=== PATIENT | male | born 1955 | race Caucasian/White ===

== ENCOUNTER 2022-02-07 08:28 | Outpatient (CLI) | payer OTHER, SELFPAY ==
--- OUTSIDE RECORDS SUMMARY | 2022-02-07 08:30 | XMS_ITS | Encounter Summary ---
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) (Primary Dx); Endocrinology M, MBBS Essential hypertension; [address] Dyslipidemia; [place] [address] [address]VD Obesity, unspecified obesity severity, u nspecified obesity type [phone] [place] [address] Social History Tobacco Use Types Packs/Day Years Used Date Smoking Tobacco: Former Cigarettes Quit : 11/17/2006 Smokeless Tobacco: Never Sex Assigned at Date Recorded Not on file documented as of this encounter Last Filed Vital Signs Vital Sign Reading Time Taken Comments Blood Pressure 138/68 06/15/2019 10:15 AM CDT Pulse 72 06/15/2019 10:15 AM CDT Temperature - - Respiratory Rate - - Oxygen Saturation - - Inhaled Oxygen Concentration - - Weight 110 kg (242 lb 6.4 oz) 06/15/2019 10:15 AM CDT Height 171.5 cm (5' 7.5) 06/15/2019 10:15 AM CDT Body Mass Index 37.4 06/15/2019 10:15 AM CDT documented in this encounter Patient Instructions Patient Corey Crowe - 06/15/2019 10:00 AM CDT Thank you for enrolling in [facility]. Please follow the instructions below to securely access your online medical record. [facility] allows you to send messages to your doctor, view your test results, renewyour prescriptions, schedule appointments, and more. How Do I Sign Up? 1. In your Internet browser, go to [email or web address] 2. Click on the Enter activation code link under the New User? section. You will see the Activate your account! page. 3. Enter your activation code exactly as it appears below. You will not need to use this code after you???ve completed the sign-up process. If you do not sign up before the expiration date, you must request a new code. Activation Code: [email or web address] Expires: 07/15/2019 10:43 AM 4. Enter your last name and date of (mm/dd/yyyy) as indicated, then click Continue. You will be taken to the Let's set up your account page. 5. Create a username. This will be your [facility] login ID and cannot be changed, so think of one thatis secure and easy to remember. 6. Create a password. You can change your password at any time. 7. Enter your e-mail address. You will receive e-mail notification when new information is availablein [facility]. 8. Select your Security Questions and enter your answers. These can be used at a later time if you forget your password. 9. Check the box to accept the terms and conditions. Click Create your account. You can now view your medical record. Additional Information If you have questions, you can call [phone] to talk to our [facility] staff. Remember, [facility] is NOT to be used for urgent needs. For medical emergencies, dial 911. documented in this encounter Progress Notes Scott Guerra MBBS - 06/15/2019 10:00 AM CDT [facility] Department of Endocrinology, Diabetes and Metabolism Clinic Note Name: Diaz Jones Cc: The patient was referred by Dr Meadows for diabetes management. HPI: Diaz Jones is a 63 y.o. male #1 T2DM: Diagnosed at age 51, on insulin since age 62, this is complicated by microalbuminuria and neuropathy. He is currently using insulin lantus 30 units QHS and metformin 1 gm BID. He checks his FSBG 2 times daily, running in the 150-200 range, A1C today was 8%. He has peripheral neuropathy symptoms. Eye exam from 2019 was reported with no retinopathy. He takes levothyroxine 100 mcg daily, TSH from 11/2018 was 1.3. Creatinine from 11/2018 was 0.7, he has microalbuminuria, he takes lisinopril 10 mg daily, BP today was 138/68. ROS: A 10 point ROS was done, and is negative unless specified otherwise in the HPI. Medications: medication list was reviewed and updated on the EMR. PMHx: Past Medical History: Diagnosis Date ??? Diabetes mellitus type II, controlled (HRC) ??? Dyslipidemia (HRC) 06/15/2019 ??? Essential hypertension (HRC) 06/15/2019 FHx: Family History Problem Relation Age of Onset ??? Diabetes, Type II Father ??? Diabetes Brother SHx: Social History Tobacco Use ??? Smoking status: Former Smoker Last attempt to quit: 11/17/2006 Years since quittin.5 ??? Smokeless tobacco: Never Used Substance Use Topics ??? Alcohol use: Not on file ??? Drug use: Not on file Physical Examination: Vitals: BP 138/68 (BP Location: Left Arm, BP Cuff Size: Large) Pulse 72 Ht 5' 7.5 (1.715 m) Wt 242 lb 6.4 oz (110 kg) BMI 37.40 kg/m?? General: The patient is alert and oriented, no acute distress. Eyes: EOMI, pupils are equal. ENT: Mucous membranes are moist. Neck: Supple, no palpable lymph nodes. Thyroid: No exophthalmos, no lid lag or retraction. Thyroid gland is not palpable. Chest: Clear to auscultation bilaterally. Normal S1 and S2, no murmurs. Neurologic exam: Power is symmetrical 5/5 in upper and lower extremities. Reflexes are normal and symmetrical bilaterally. Upper extremities: Hands are dry, no clubbing or cyanosis. Labs: Reviewed and summarized in the HPI. Assessment and Plan: Diaz Jones is a 63 y.o. male: #1 T2DM: Uncontrolled, complicated by microalbuminuria and obesity, A1C 8%. Counseled the patient about the importance of DM control. Counseled him about diet and exercise. Continue metformin 1 gm BID. Continue Lantus 30 units QHS. Start Jardiance 10 mg daily, counseled him about dehydration and UTI. Check FSBG 2 times daily, report numbers in 4 weeks, earlier if glucose level is less than 70. RTC in 3 months. #2 HTN: controlled. #3 Microalbuminuria: continue lisinopril. #4 Dyslipidemia we will discuss statin option next visit. #5 Hypothyroidism on thyroid hormone replacement. JYOTI Rousseau Keypunch Operator documented in this encounter Plan of Treatment Not on filedocumented as of this encounter Procedures Procedure Name Priority Date/Time Associated Diagnosis Comme nts POCT GLYCOSYLATED Routine 06/15/2019 11:30 Uncontrolled type 2 Results for this HEMOGLOBIN (HGB A1C) AM CDT diabetes mellitus pr ocedure are in with nephropathy the results (HRC) section. documented in this encounter Results (ABNORMAL) POCT glycosylated hemoglobin (Hb A1C) (06/15/2019 11:30 AM CDT) P athologist Signature Hemoglobin A1C 8.0 (A) 5.6 % POCT (Rapid) Cartridge Lot# 295 POCT Specimen (Source) Anatomical Collection Method Collection Time Re ceived Time Location / / Volume Laterality Blood 06/15/2019 11:30 AM CDT Scott MONTES ET POINT OF CARE TEST ENTER/ EDIT ORDERABLES Performing Organization Address City/State/ZIP Code Phon e Number POCT documented in this encounter Visit Diagnoses Diagnosis Uncontrolled type 2 diabetes mellitus wi th nephropathy - Primary Essential hypertension (HRC) Unspecified essential hypertension Dyslipidemia (HRC) Other and unspecified hyperlipidemia Obesity, unspecified obesity severity, u nspecified obesity type (HRC) documented in this encounter Care Teams Professional Golf Tournament Player Relationship Specialty Start Date End Date Willis Meadows MD PCP - General 06/15/191999 [place] [address] documented as of this encounter
--- OUTSIDE RECORDS SUMMARY | 2022-02-07 08:30 | XMS_ITS | Encounter Summary ---
:1955 Author [facility] Address [address] [place] [address] Care Team Providers Name Role Phone Willis Meadows MD Primary Care Provider Encounter Details Date Type Department Care Team Description 04/30/2019 Notes/Orders [facility] 3800 Nurse, [id number] End Endocrinology [address] [place] [address] Social History Tobacco Use Types Packs/Day Years Used Date Smoking Tobacco: Never Assessed Sex Assigned at Date Recorded Not on file documented as of this encounter Progress Notes Coreen Bran - 04/30/2019 10:31 AM CST Received faxed referral from Cary Carmona from [facility]. documented in this encounter Plan of Treatment Not on filedocumented as of this encounter Visit Diagnoses Not on filedocumented in this encounter Care Teams Sane Nurse Relationship Specialty Start Date End Date Willis Meadows MD PCP - General 06/15/191999 [place] [address] documented as of this encounter
--- OUTSIDE RECORDS SUMMARY | 2022-02-07 08:30 | XMS_ITS | Encounter Summary ---
:1955 Author [facility] Address [address] [place] [address] Care Team Providers Name Role Phone Willis Meadows MD Primary Care Provider Reason for Visit Reason Comments LAB RESULTS Encounter Details Date Type Department Care Team Description 09/30/2019 Telephone [facility] 3800 Mala Guerra MBBS LAB RESULTS Endocrinology [address] [address] [place] [address] [phone] Social History Tobacco Use Types Packs/Day Years Used Date Smoking Tobacco: Former Cigarettes Quit : 11/17/2006 Smokeless Tobacco: Never Sex Assigned at Date Recorded Not on file documented as of this encounter Nursing Notes Scott Guerra MBBS - 09/30/2019 3:50 PM CDT A1c from 09/17/2019 was 7.3%. Janneth Acevedo - 09/30/2019 2:04 PM CDT Received lab results, faxed to Dr. Guerra's mailbox for review. documented in this encounter Plan of Treatment Not on filedocumented as of this encounter Visit Diagnoses Not on filedocumented in this encounter Care Teams Manager Sterile Processing Relationship Specialty Start Date End Date Willis Meadows MD PCP - General 06/15/191999 [place] [address] documented as of this encounter
--- OUTSIDE RECORDS SUMMARY | 2022-02-07 08:30 | XMS_ITS | Clinical Summary ---
:1955 Author Organization [employer] Address [address] [place] [address] Care Team Providers Name Role Phone Willis Meadows MD Primary Care Provider Source Comments You are receiving this document as you are listed as the primary care provider,follow-up provider, or the patient has been referred to you for consultation.This is in compliance with the Medicare and Medicaid EHR Incentive Program,which states Providers who transition their patient to another setting of careor provider of care or refers their patient to another provider of care shouldprovide summarycare record for each transition of care or referral. [facility] Allergies No known active allergies Medications Medication Sig Dispensed Refills Start Date End Date Status levothyroxine Take 100 mcg by 0 05/04/2019 Active (SYNTHROID) 100 MCG mouth daily. tablet LANTUS SOLOSTAR 100 Inject 10-20 Units 0 06/08/2019 Active UNIT/ML pen subcutaneously daily. metFORMIN Take 1,000 mg by 0 05/04/2019 Ac tive (GLUCOPHAGE) 1000 MG mouth two times a tablet day with meals. traZODone (DESYREL) 0 04/01/2019 Active 50 MG tablet lisinopril (ZESTRIL) Take 20 mg by mouth 3 9 Active 20 MG tablet daily. ACCU-CHEK JERZY PLUS three times a day. 0 05/20/2019 Active test strip ALBUterol sulfate HFA Inhale 1-2 Puffs 0 Active 108 (90 Base) MCG/ACT every 4 hours as inhaler needed for Wheezing. B Complex Vitamins (B 0 Active COMPLEX OR) diphenhydrAMINE Chew and swallow 0 Active (BENADRYL) 12.5 MG 12.5 mg by mouth 4 chewable tablet times daily as needed for Allergies. ibuprofen (MOTRIN) Take 200-400 mg by 0 Active 200 MG tablet mouth every 4 hours as needed for Pain. aspirin 81 MG tablet Take 81 mg by mouth 0 Active daily. empagliflozin Take 1 Tablet by 90 Tablet 3 06/15/2019 Active (JARDIANCE) 10 MG mouth daily. tabletIndications: 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 Active Problems Problem Noted Date 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 06/15/2019 Essential hypertension 06/15/2019 Dyslipidemia 06/15/2019 Obesity, unspecified obesity severity, unspecified obe sity type 06/15/2019 Family History Medical History Relation Name Comments Diabetes, Type II Father Diabetes Brother Relation Name Status Comments Father Brother Social History Tobacco Use Types Packs/Day Years Used Date Smoking Tobacco: Former Cigarettes Quit : 11/17/2006 Smokeless Tobacco: Never Sex Assigned at Date Recorded Not on file Last Filed Vital Signs Vital Sign Reading [...] Mass Index 37.4 06/15/2019 10:15 AM CDT Plan of Treatment Health Maintenance Due Date Last Done Comments Colon Cancer Screening Plan 1955 Due Diabetes: Creatinine 1955 Diabetes: Eye Exam 1955 Diabetes: Foot Exam 1955 Diabetes: Lipid Panel 1955 Diabetes: Urine Microalbumin 1955 Hep C Screening (Preventive 1955 Services) PSA Screening Discussion 1955 COVID-19 Vaccine (#1) 06/30/1954 DTaP/Tdap/Td (1 - Tdap) 1972 HepB (1) 1972 Zoster/Shingles (1 of 2) 01/01/2004 Diabetes: HGBA1C 09/15/2019 06/15/2019 Pneumococcal 65+ Yrs (2 - 12/22/2020 12/23/2019 PPSV23) Medicare Annual Wellness 04/07/2021 Visit Influenza (#1) 2021 01/29/2020, 12/30/2018, 02/15/2018 HepA Aged Out No longer eligib le based on patient's age to complete this to pic Hib Aged Out No longer eligib le based on patient's age to complete this to pic IPV (Polio) Aged Out No longer eligib le based on patient's age to complete this to pic MCV4 Aged Out No longer eligib le based on patient's age to complete this to pic Insurance Payer Benefit Plan / Subscriber ID Effective Dates Phone Addre ss Type Group HUMANA HUMANA MEDICARE [id number] 2018-Present [phone] Medicare PPO Care Teams Laboratory Inspector Relationship Specialty Start Date End Date Willis Meadows MD PCP - General 06/15/191999 [place] [address]
--- OUTSIDE RECORDS SUMMARY | 2022-02-07 08:30 | XMS_ITS | Encounter Summary ---
:1955 Author Organization [facility] Address [address] [place] [address] Care Team Providers Name Role Phone Willis Meadows MD Primary Care Provider Encounter Details Date Type Department Care Team Description 12/09/2019 Orders Only Initial Department [facility] ROSALINO PRESLEY MD [place], [place] [address] Interface provider [phone] [place] [address] Social History Tobacco Use Types Packs/Day Years Used Date Smoking Tobacco: Former Cigarettes Quit : 11/17/2006 Smokeless Tobacco: Never Sex Assigned at Date Recorded Not on file documented as of this encounter Plan of Treatment Not on filedocumented as of this encounter Procedures Procedure Name Priority Date/Time Associated Diagnosis Comme nts LABORATORY REPORT 12/09/2019 Results fo r this procedure are in the resu lts section. documented in this encounter Results LABORATORY REPORT (12/09/2019) Narrative This result has an attachment that is no t available. Interface Provider DUMMY/OTHER/AR documented in this encounter Visit Diagnoses Not on filedocumented in this encounter Care Teams Vp Delivery Relationship Specialty Start Date End Date Willis Meadows MD PCP - General 06/15/191999 [place] [address] documented as of this encounter
[2022-02-07 10:38] LABS: Albumin* 4.7 g/dL (3.3-5.0); Chloride* 100 mmol/L (96-114)
[2022-02-07 10:39] LABS: Potassium* 4.6 mmol/L (3.6-5.1); Sodium* 134 mmol/L (135-149)
[2022-02-07 10:41] LABS: Aspartate Amino Transferase* 35 U/L (12-35); Bilirubin Total* 0.8 mg/dL (0.1-1.5); Blood Urea Nitrogen* 27 mg/dL (7-30); Carbon Dioxide* 24 mmol/L (20-32); Cholesterol* 174 mg/dL (90-199); Creatinine* 1.2 mg/dL (0.5-1.5); Estimated Glomerular Filt Rate 66 ml/min
[2022-02-07 10:42] LABS: Alanine Aminotransferase* 33 U/L (4-50); Alkaline Phosphatase* 73 U/L (40-150); Calcium* 8.7 mg/dL (8.4-10.6); Glucose* 178 mg/dL (60-115); HDL Cholesterol* 35 mg/dL (>=40)
[2022-02-07 10:50] LABS: Creatinine Urine 59.1 mg/dL
[2022-02-07 10:55] LABS: Microalbumin Creatinine Ratio 100 mg/g (0-30); Microalbumin Urine 6 mg/dL
[2022-02-07 11:11] LABS: PSA Screen* 1.52 ng/mL (0.10-4.00)
[2022-02-07 11:15] LABS: LDL Cholesterol Calculated 2 mg/dL (<100); Triglycerides* 687 mg/dL (40-149)
== END 2022-02-07 08:29 | disposition home or self-care (01) ==
PROVIDERS: PCP Internal Medicine; Visit Provider Internal Medicine
DX: E11.9 Type 2 diabetes mellitus without complications (principal); E03.9 Hypothyroidism, unspecified; I10 Essential (primary) hypertension; E66.9 Obesity, unspecified; Z12.5 Encounter for screening for malignant neoplasm of prostate
CPT/HCPCS: 80053; 80061; 82043; 82570; 84153; 84443

== ENCOUNTER 2022-05-09 08:49 | Outpatient (CLI) | payer OTHER, SELFPAY ==
[2022-05-09 09:55] LABS: Chloride* 103 mmol/L (96-114); Potassium* 4.6 mmol/L (3.6-5.1); Sodium* 135 mmol/L (135-149)
[2022-05-09 09:58] LABS: Blood Urea Nitrogen* 23 mg/dL (7-30); Carbon Dioxide* 26 mmol/L (20-32); Cholesterol* 103 mg/dL (90-199); Creatinine* 1.1 mg/dL (0.5-1.5); Estimated Glomerular Filt Rate 73 ml/min; Glucose* 184 mg/dL (60-115)
[2022-05-09 09:59] LABS: HDL Cholesterol* 39 mg/dL (>=40); LDL Cholesterol Calculated 17 mg/dL (<100); Triglycerides* 234 mg/dL (40-149)
== END 2022-05-09 08:50 | disposition home or self-care (01) ==
PROVIDERS: PCP Internal Medicine; Visit Provider Internal Medicine
DX: E11.9 Type 2 diabetes mellitus without complications (principal); I10 Essential (primary) hypertension; E78.5 Hyperlipidemia, unspecified
CPT/HCPCS: 80048; 80061

== ENCOUNTER 2024-07-12 17:19 | Outpatient (CLI) | payer OTHER, SELFPAY ==
--- NOTE | 2024-07-12 17:30 | MR_ITS ---
EXAM: MRI of the RIGHT SHOULDER, without contrast CLINICAL: Right shoulder pain. Evaluate for rotator cuff tear. COMPARISONS: X-rays dated 05/27/2024. TECHNICAL: Multiplanar multisequence MRI of the right shoulder was obtained. SEDATION: None. CONTRAST: None. FINDINGS: Rotator cuff: Supraspinatus/Infraspinatus: There is high-grade near full-thickness and full- thickness tearing of the distal supraspinatus tendon with slight retraction of torn tendon fibers by approximately 7 mm. There is mild tendinosis of the distal infraspinatus tendon with partial interstitial insertional tearing of the anterior distal infraspinatus tendon seen on coronal series 5 image 13-14. No fatty atrophy of the muscles. Teres minor: No tendinosis, tear or atrophy. Subscapularis: There is partial interstitial and bursal surface tearing of the distal tendon superimposed upon tendinosis as seen on axial series 4 image 17- 18. No fatty atrophy of the muscle. Bursae: Subacromial-subdeltoid: Minimal bursal fluid. Subcoracoid: No significant bursal fluid. Coracoacromial arch: Acromion morphology: Type II. No os acromiale. Acromiohumeral space: Within normal limits. Coracohumeral space: Within normal limits. Biceps tendon, long head: There is moderate tendinosis of the intra-articular tendon as seen on sagittal series images 11-12. No significant tendon tear or displacement. Glenohumeral joint: Physiologic volume of joint fluid. Articular cartilage: Suspect moderate chondral thinning involving the glenohumeral joint as visualized. Capsule: No evidence of capsular thickening or injury. Labrum: There is attenuation/degeneration of the majority of the glenoid labrum. No perilabral cyst identified. Bones: No suspicious marrow signal alteration, fracture or dislocation. Mild degenerative peripheral marginal spurring involving the glenoid. Acromioclavicular joint: Moderate changes of arthrosis. No AC joint widening. IMPRESSION: 1. High-grade near full-thickness and full-thickness tearing involving the insertional fibers of the distal supraspinatus tendon with slight retraction of torn tendon fibers. 2. Mild tendinosis of the distal infraspinatus tendon with partial interstitial insertional tearing of the anterior insertional fibers of the distal infraspinatus tendon. 3. Partial tearing of the distal subscapularis tendon superimposed upon tendinosis. 4. Moderate tendinosis of the intra-articular long head biceps tendon. 5. Suspect moderate chondral thinning involving the glenohumeral joint. 6. Moderate AC joint arthrosis. JCZ Electronically signed on 07/13/2024 8:39:00 AM by Barry Mendoza D.O.
== END 2024-07-12 17:20 | disposition home or self-care (01) ==
LOC: MRI 17:20
PROVIDERS: PCP Family Medicine; Visit Provider Orthopaedic Surgery
DX: M25.511 Pain in right shoulder (principal); M75.101 Unspecified rotator cuff tear or rupture of right shoulder, not specified as traumatic; M75.21 Bicipital tendinitis, right shoulder; M19.011 Primary osteoarthritis, right shoulder
CPT/HCPCS: 73221

== ENCOUNTER 2024-07-13 10:15 | Outpatient (RCR) | payer OTHER, SELFPAY | END 2024-09-08 08:42 | disposition home or self-care (01) | PROVIDERS: PCP Internal Medicine; Visit Provider Family Medicine | DX: S49.91XD Unspecified injury of right shoulder and upper arm, subsequent encounter (principal); M25.511 Pain in right shoulder; Z51.89 Encounter for other specified aftercare | CPT/HCPCS: 97110; 97140; 97161 ==

== ENCOUNTER 2024-08-26 06:45 | Day surgery (SDC) | payer OTHER, SELFPAY ==
[2024-08-26] VITALS (19 sets, daily range): BP systolic 78–134; BP diastolic 43–75; PULSE 73–99; RESP 14–20; TEMP 36.1–36.6; O2SAT 91–98; BMI 37.5
[2024-08-26] MEDS: LACTATED RINGERS 1000 ML 1,000 ML 100 ML IV ×2 (07:20→08:51)
[2024-08-26] MEDS: SODIUM CHLORIDE 0.9 % (FLUSH) 10 ML SYRINGE IVF (07:25)
[2024-08-26] MEDS: ACETAMINOPHEN 500 MG TABLET 1000 MG PO (07:25)
[2024-08-26] MEDS: OXYCODONE (CR) 10 MG TAB.ER.12H PO (07:25)
[2024-08-26] MEDS: CELECOXIB 200 MG CAPSULE PO (07:25)
[2024-08-26] MEDS: MIDAZOLAM HCL 1 MG/ML inj IVP (07:35)
[2024-08-26] MEDS: fentaNYL 100 MCG/2 ML inj IVP (07:35)
--- NOTE | 2024-08-26 07:36 | SUR.PREOP ---
TIME?OUT:?0734 PT/RN/MDA?VERIFICATION?OF?SURGICAL?SITE-RIGHT SHOULDER,?NERVE BLOCK, PROCEDURE,?AND?CONSENT OBTAINED?PRIOR?TO?INVASIVE?PROCEDURE.
--- NOTE | 2024-08-26 07:43 | P.ANES_ITS ---
Anesthesia Charges Start Date/Time Anesthesia Start Date: 08/26/24 Anesthesia Start Time: 08:12 Stop Date/Time Anesthesia Stop Date: 08/26/24 Anesthesia Stop Time: 10:30 Summary Extremes of Age - Over 70 or under 1: MDA Coding CPT Codes CPT Codes: ANESTH SURGERY OF SHOULDER - 70278 ([id number]) P2 - PATIENT W/MILD SYST DISEASE, QK - SENIOR CHEMICAL ENGINEER 2-4 CNCRNT ANES PROC, QX - MATERIALS AND CORROSION ENGINEER SVC W/ MD MED DIRECTION Additional Codes: Summary - Extremes of Age - Over 70 or under 1: MDA ([id number])
--- NOTE | 2024-08-26 07:43 | P.NB_ITS ---
Nerve Block Nerve Block Time Seen by Provider: 07:39 Date Seen: 08/26/24 Type of block requested by surgeon for post-operative analgesia: supraclavicular Side: right Time out performed: Yes Verification of patient name: Yes Verification of date of : Yes Site marking: site marked Name of person performing procedure: Lc Continuous monitoring Was continuous monitoring of O2 sat, B/P, awake overnight monitor, recorded every 15 minutes?: Yes Procedure Checklist: sterile prep, needles and gloves Ultrasound guided. Images saved: Yes Medications given in 5ml increments after negative aspiration: Ropivicaine %: 0.5 mL: 20 Needle gauge: 22 Precedex (mcg): 25 Patient tolerated procedure well: Yes Block Charges Block Charge (with Pro Fee): Brachial Plexus Use of Ultrasound Machine for Block: Yes- US Guidance/pain block
--- NOTE | 2024-08-26 07:43 | W.ANESCHARGE ---
Anesthesia Charges Start Date/Time Anesthesia Start Date: 08/26/24 Anesthesia Start Time: 08:12 Stop Date/Time Anesthesia Stop Date: 08/26/24 Anesthesia Stop Time: 10:30 Summary Extremes of Age - Over 70 or under 1: MDA Coding CPT Codes CPT Codes: ANESTH SURGERY OF SHOULDER - 34646 ([id number]) P2 - PATIENT W/MILD SYST DISEASE, QK - HEALTH AND SAFETY TRAINER 2-4 CNCRNT ANES PROC, QX - SCIENTOLOGIST SVC W/ MD MED DIRECTION Additional Codes: Summary - Extremes of Age - Over 70 or under 1: MDA ([id number])
[2024-08-26] MEDS: CEFAZOLIN 1 GM inj IVP (08:15)
[2024-08-26] MEDS: EPINEPHrine 1 MG in SODIUM CHLORIDE IRRIG SOLUTION 3,000 ML 3001 MG IRRIGATION ×2 (08:44→08:45)
--- NOTE | 2024-08-26 10:01 | PM.ORPRC ---
Procedure Note Date of procedure: 08/26/24 Procedure: PREOPERATIVE DIAGNOSIS: Right shoulder rotator cuff tear, AC joint arthrosis, labral tearing, biceps tendinopathy POSTOPERATIVE DIAGNOSIS: Right shoulder rotator cuff tear, AC joint arthrosis, labral tearing, biceps tendinopathy NAME OF OPERATION: Right shoulder arthroscopic limited glenohumeral joint debridement, subacromial decompression, distal clavicle excision, mini open rotator cuff repair, subscap repair, biceps tenodesis SURGEON: Kiel Laguna MD BOOK CRITIC: Jennifer Cheng PA-C ANESTHESIA: Supraclavicular block plus general endotracheal ESTIMATED BLOOD LOSS: 5 mL COMPLICATIONS: None SPECIMENS: None DRAINS: None PREOPERATIVE ANTIBIOTICS: Ancef 2 grams INDICATIONS: The patient is a 68-year-old with a history of right shoulder pain secondary to the above diagnoses. Despite appropriate non operative management, they continue to have symptoms. Operative intervention was recommended. The risks, benefits and expected outcomes were discussed in detail. These included but were not limited to: Infection, bleeding, injury to blood vessel or nerve, venous thromboembolism. All questions were answered to their satisfaction. PROCEDURE: A supraclavicular block was placed by Anesthesia. General anesthesia was administered. The patient was placed in the high beach chair position. The right shoulder was prepped and draped in the usual sterile fashion. The glenohumeral joint was infiltrated with 20 mL of normal saline with epinephrine. The posterior portal was established, the arthroscope was introduced. The anterior portal was established, Diagnostic arthroscopy was performed with findings as follows: The biceps has a significant amount of intra-articular tendinopathy. There is age-appropriate degenerative tearing of anterior, superior and posterior labrum. Articular surfaces on the humeral head and glenoid are normal. There are no loose bodies. There is a full-thickness tear of the supraspinatus. There is deep surface tearing of the upper insertion of the subscap. Anterior, superior and posterior labrum was debrided with the shaver. The biceps was tenotomized with the arthroscopic scissors. The stump was resected with the shaver. The arthroscope was placed in the subacromial space, the lateral portal was established. The Arthrex [place] was used to dissect the acromion free. The CA ligament was recessed off the anterior acromion, the AC joint was exposed. The acromioplasty was performed with the bur in the posterior portal. The bur was then placed in the lateral portal and the lateral and anterior aspect of the acromion were resected. The undersurface of the distal clavicle was resected through the lateral portal. Finally, the bur was placed in the anterior portal and the remainder of the distal clavicle was resected for a total of 10 mm. An accessory anterolateral portal was placed. The subacromial/subdeltoid bursa was aggressively debrided. There is a full-thickness tear of the supraspinatus. Arthroscopic instruments were removed. The accessory anterolateral portal was extended proximally and distally, subcutaneous dissection was taken with electrocautery to the deltoid. The deltoid was divided in line with its fibers. The static retractor was placed. The subacromial/subdeltoid bursa was debrided with the Peter scissors. The greater tuberosity was debrided to punctate bleeding bone using the arthroscopic bur. A FiberLink whipstitch was placed in the biceps. A suture tape inverted mattress was placed in the upper border of the subscap. The lesser tuberosity was debrided with Lempert rongeur. There was a small longitudinal split in the subscap. This was closed with a suture tape in an interrupted ftbfze-bo-mrxmh fashion x2. The suture on the biceps and the inverted mattress in the subscap were placed in a corkscrew anchor at the top of the bicipital groove, proximal and lateral aspect of the lesser tuberosity. This completes the biceps tenodesis and subscap repair. Two Arthrex FiberTak anchors were placed just off the articular surface of the greater tuberosity. Both limbs of the FiberWire and fiber tape were passed using the scorpion. A fiber link was placed in the leading edge of the rotator cuff x2. We tied the 2 central FiberWire sutures over the rotator cuff. We then proceeded with a lateral row of SwiveLock anchors x 2 crossing the FiberTape and incorporating the FiberWire and fiber link into each lateral row anchor. This provides an anatomic, watertight repair of the rotator cuff. There is no tension on the repair with the shoulder at 0? abduction. The wound was irrigated with normal saline off the pump. The deltoid was repaired with an 0 Vicryl in an interrupted qievaj-op-kbfvj fashion. Subcutaneous tissues were closed with a 3-0 Vicryl. Skin was closed with a 3-0 Monocryl in a subcuticular fashion. A dry dressing and sling were applied. Sponge and needle counts were correct x2. The patient tolerated the procedure well. There were no apparent complications. They were carefully transferred to the hospital bed and taken to the postanesthesia care unit in satisfactory condition. PLAN: The patient will be discharged to home. No active range of motion of the shoulder will be allowed for 6 weeks postoperatively. They can work on active range of motion of the elbow, wrist and fingers. They will follow up in the office next week for a wound check and an AP and transscapular Y-view of the shoulder prior to being seen.
--- NOTE | 2024-08-26 10:33 | P.ANES_ITS ---
Anesthesia Charges Start Date/Time Anesthesia Start Date: 08/26/24 Anesthesia Start Time: 08:12 Stop Date/Time Anesthesia Stop Date: 08/26/24 Anesthesia Stop Time: 10:30 Coding CPT Codes CPT Codes: ANESTH SURGERY OF SHOULDER - 87493 ([id number]) P3 - PATIENT W/SEVERE SYS DISEASE, QK - ROLLER OPERATOR 2-4 CNCRNT ANES PROC, QX - TRAIN STATION AGENT SVC W/ MD MED DIRECTION
--- NOTE | 2024-08-26 10:33 | W.ANESCHARGE ---
Anesthesia Charges Start Date/Time Anesthesia Start Date: 08/26/24 Anesthesia Start Time: 08:12 Stop Date/Time Anesthesia Stop Date: 08/26/24 Anesthesia Stop Time: 10:30 Coding CPT Codes CPT Codes: ANESTH SURGERY OF SHOULDER - 85195 ([id number]) P3 - PATIENT W/SEVERE SYS DISEASE, QK - BENCH ASSEMBLER OPERATOR 2-4 CNCRNT ANES PROC, QX - CREDIT RESOLUTION REPRESENTATIVE SVC W/ MD MED DIRECTION
== END 2024-08-26 12:31 | disposition home or self-care (01) ==
LOC: OR 06:46
PROVIDERS: PCP Family Medicine; Visit Provider Orthopaedic Surgery
PROC: (CPT 29805; principal; 2024-08-26 08:00)
DX: S46.011A Strain of muscle(s) and tendon(s) of the rotator cuff of right shoulder, initial encounter (principal); M19.011 Primary osteoarthritis, right shoulder; S43.431A Superior glenoid labrum lesion of right shoulder, initial encounter; M75.21 Bicipital tendinitis, right shoulder; G89.18 Other acute postprocedural pain; E11.9 Type 2 diabetes mellitus without complications; E66.9 Obesity, unspecified; I10 Essential (primary) hypertension; N40.0 Benign prostatic hyperplasia without lower urinary tract symptoms
CPT/HCPCS: 29826; 29828; 29824; 29822; 23412; 01630; 64415; 76942; 82962; 99100; A9270; C1713; J0171; J0330; J0690; J1100; J2250; J2371; J2405; J2704; J2795; J3010; J7120; L3670

== ENCOUNTER 2024-10-02 09:24 | Emergency (ER) | payer OTHER, SELFPAY ==
--- NOTE | 2024-10-02 | CRLHL7_ITS ---
For Patients: As a result of the Century Cures Act, medical imaging exams and procedure reports are released immediately into your electronic medical record. You may view this report before your referring provider. If you have questions, please contact your health care provider. INDICATION: Perirectal abscess for 2-1/2 days TECHNIQUE: CT pelvis with 114 mL Isovue 370 intravenous contrast. COMPARISON: None. FINDINGS: GI tract: Unremarkable. Vasculature: Abdominal aorta is normal in caliber. Lymph nodes: Minimally prominent left inguinal lymph nodes which could be reactive. Peritoneum/Abdominal Wall: Unremarkable. No sign of mass or infiltration. No free air or significant free fluid. Pelvis: Enlarged prostate gland. There is a 1.9 x 2.8 centimeter left nnamdi abscess. Anal there is adjacent soft tissue stranding in the medial posterior gluteal soft tissues. Bones: Unremarkable for age. : Impression : 1. 1.9 x 2.8 centimeter left Perianal abscess. Please note that all CT scans at this facility use dose modulation, iterative reconstruction, and/or weight-based dosing when appropriate to reduce radiation dose to as low as reasonably achievable. Dictated by Eloisa Geronimo MD @ 10/02/2024 12:13:46 PM (Electronically Signed)
--- OUTSIDE RECORDS SUMMARY | 2024-10-02 09:27 | XMS_ITS | Clinical Summary ---
[facility] Organization [facility] Address [address] [place] [address] Care Team Providers Care Dictating Machine Mechanic Name Role Phone Willis Meadows MD Primary Care Provider [phone]- [phone] Source Comments You are receiving this document as you are listed as the primary care provider,follow-up provider, or the patient has been referred to you for consultation.This is in compliance with the Medicare andTr[facility] Hospitalcaid EHR Incentive Program,which states Providers who transition their patient to another setting of careor provider of care or refers their patient to another provider of care shouldprovide summary care record for each transition of care or referral. [facility] Allergies No known active allergies Medications levothyroxine (SYNTHROID) 100 MCG tablet Take 100 mcg by mouth daily. 05/04/19 20 Active LANTUS SOLOSTAR 100 UNIT/ML pen Inject 10-20 Units subcutaneously daily. 06/08/19 20 Active metFORMIN (GLUCOPHAGE) 1000 MG tablet Take 1,000 mg by mouth two times a day with meals. 05/04/19 20 Active traZODone (DESYREL) 50 MG tablet 04/01/20 19 Active lisinopril (ZESTRIL) 20 MG tablet Take 20 mg by mouth daily. 3 03/26/20 19 Active ACCU-CHEK JERZY PLUS test strip three times a day. 20 Active ALBUterol sulfate HFA 108 (90 Base) MCG/ACT inhaler Inhale 1-2 Puffs every 4 hours as needed for Wheezing. Active B Complex Vitamins (B COMPLEX OR) Active diphenhydrAMINE (BENADRYL) 12.5 MG chewable tablet Chew and swallow 12.5 mg by mouth 4 times daily as needed for Allergies. Active ibuprofen (MOTRIN) 200 MG tablet Take 200-400 mg by mouth every 4 hours as needed for Pain. Active aspirin 81 MG tablet Take 81 mg by mouth daily. 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 90 Tablet 3 06/15/19 20 Active Active Problems Problem Noted Date Diagnosed Date Uncontrolled type 2 diabetes mellitus with nephr opathy 06/15/2019 Essential hypertension 06/15/2019 Dyslipidemia 06/15/2019 Obesity, unspecified obesity severity, unspecified obesity type 06/15/2019 Family History Medical History Relation Name Comments Diabetes, Type II Father Diabetes Brother Relation Name Status Comments Father Brother Social History Tobacco Use Types Packs/Day Years Used Date Smoking Tobacco: Former Cigarettes Q uit: 11/17/2006 Smokeless Tobacco: Never Sex and Gender Information Value Date Recorded Sex Assigned at Not on file 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 Gender Identity Not on file Sexual Orientation Not on file Last Filed Vital Signs Vital Sign Reading Time Taken Comments Blood Pressure 138/68 06/15/2019 10:15 AM CDT Pulse 72 06/15/2019 10:15 AM CDT Temperature - - Respiratory Rate - - Oxygen Saturation - - Inhaled Oxygen Concentration - - Weight 110 kg (242 lb 6.4 oz) 06/15/2019 10:15 A M CDT Height 171.5 cm (5' 7.5) 06/15/2019 10:15 AM CD T Body Mass Index 37.4 06/15/2019 10:15 AM CDT Plan of Treatment Health Maintenance Due Date Last Done Comments Colon Cancer Screening Plan Due 1955 Diabetes: Creatinine 1955 Diabetes: Eye Exam 1955 Diabetes: Foot Exam 1955 Diabetes: Lipid Panel 1955 Diabetes: Urine Microalbumin 1955 Hep C Screening (Preventive Services) 1955 DTaP/Tdap/Td Vaccine (1 - Tdap) 1972 Zoster/Shingles Vaccine (1 o f 2) 01/01/2004 Diabetes: HGBA1C 12/16/2019 06/15/2019 Pneumococcal Vaccine 50+ Yrs (2 of 2 - PCV) 12/22/2020 12/23/2019 COVID-19 Vaccine (3 - 2023-2 5 season) 2023 06/30/2020, 06/02/2020 Medicare Annual Wellness Visit 04/07/2024 Influenza Vaccine (Season Ended) 2024 01/29/2020, 12/30/2018, 02/15/2018 RSV Vaccine (1 - 1-dose 75+ series) 2028 HepA Vaccine Aged Out No longer eligi ble based on patient's age to complete this topic HepB Vaccine Aged Out No longer eligi ble based on patient's age to complete this topic Hib Vaccine Aged Out No longer eligi ble based on patient's age to complete this topic IPV (Polio) Vaccine Aged Out No longe r eligible based on patient's age to complete this topic MCV4 Vaccine Aged Out No longer eligi ble based on patient's age to complete this topic Meningococcal B Vaccine Aged Out No l onger eligible based on patient's age to complete this topic Procedures Procedure Name Priority Date/Time Associated Diagnosis Comments FIT,OCCULT BLOOD, STOOL Routine 07/10/2024 7:56 AM CDT Encounter for screening for malignant neoplasm of colon POCT GLYCOSYLATED HEMOGLOBIN (HGB A1C) Routine 06/15/2019 11:30 AM CDT 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 (HRC) from Last 3 Months or Most Recently Relevant to Health Maintenance Results * FIT, OCCULT BLOOD, STOOL (07/10/2024 7:56 AM CDT) FIT Specimen 1 Negative Negative 07/14/2024 1:57 AM CDT [facility] Stool Non-blood Collection / Unknown 07/10/2024 7:56 AM CDT 07/13/2024 2:12 PM CDT us Juany Hoskins [employer], DNP LAB_1 Jess l Result [facility] [address] [address] * (ABNORMAL) POCT glycosylated hemoglobin (Hb A1C) (06/15/2019 11:30 AM CDT) Hemoglobin A1C (Rapid) 8.0(A) <=5.6 % POCT Cartridge Lot# 295 POCT Blood 06/15/2019 11:3 0 AM CDT Scott MONTES ET POINT OF CARE TEST ENT ER/EDIT ORDERABLES Final Result POCT from Last 3 Months or Most Recently Relevant to Health Maintenance Insurance HUMAN Care Teams Dictating Machine Mechanic Relationship Specialty Start Date End Date Willis Meadows MD [address] [place] [address] PCP - General 06/15/19
--- OUTSIDE RECORDS SUMMARY | 2024-10-02 09:27 | XMS_ITS | Encounter Summary ---
Author Organization [facility] Address [address] [address] Care Team Providers Care Catheter Builder Name Role Phone Willis Meadows MD Primary Care Provider [phone]- [phone] Encounter Details Date Type Department Care Team (Late st Contact Info) Description 06/19/2024 Lab Requisition [address] [place] [address] Juany Hoskins APRN, DNP [address] [address] Encounter for screening for malignant neoplasm of colon Social History Tobacco Use Types Packs/Day Years Used Date Smoking Tobacco: Former Cigarettes Q uit: 11/17/2006 Smokeless Tobacco: Never Sex and Gender Information Value Date Recorded Sex Assigned at Not on file 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 Gender Identity Not on file Sexual Orientation Not on file documented as of this encounter Plan of Treatment Not on file documented as of this encounter Procedures Procedure Name Priority Date/Time Associated Diagnosis Comments FIT,OCCULT BLOOD, STOOL Routine 07/10/2024 7:56 AM CDT Encounter for screening for malignant neoplasm of colon [facility] FIT KIT Routine 06/19/2024 5:3 3 PM CDT Encounter for screening for malignant neoplasm of colon documented in this encounter Results * FIT, OCCULT BLOOD, STOOL (07/10/2024 7:56 AM CDT) FIT Specimen 1 Negative Negative 07/14/2024 1:57 AM CDT [facility] Stool Non-blood Collection / Unknown 07/10/2024 7:56 AM CDT 07/13/2024 2:12 PM CDT Juany Garciaana cristina MEDINA, DNP LAB_1 Jess l Result Performing Organization Address [facility] Co de Phone Number [facility] [address] [place] [address] * [facility] FIT KIT (06/19/2024 5:33 PM CDT) [facility] KIT RECEIVED Kit Received at [facility] 07/13/2024 2:12 PM CDT [facility] Comment:This result was prev iously suppressed from the chart. [facility] FIT KIT SENT Yes 07/13/2024 2:12 PM CDT [facility] Stool Non-blood Collection / Unknown 06/19/2024 5:33 PM CDT 06/19/2024 5:33 PM CDT us Juany Garciaana cristina MEDINA, DNP LAB_1 Jess l Result Performing Organization Address [facility] Co de Phone Number [address] documented in this encounter Visit Diagnoses Diagnosis Encounter for screening for malignant neoplasm of colon Special screening for malignant neoplasms, colon documented in this encounter Care Teams Catheter Builder Relationship Specialty Start Date End Date Willis Meadows MD [address] [place] [address] PCP - General 06/15/19 documented as of this encounter
[2024-10-02 09:28] VITALS: BP 113/75; PULSE 105; RESP 18; TEMP 36.7; O2SAT 94; BMI 37.3
--- NOTE | 2024-10-02 09:52 | ED.GENADULT ---
HPI - General Adult General Chief complaint: Skin/Abscess/Foreign Body Stated complaint: Pain on bottom Time Seen by Provider: 10/02/24 09:44 History of Present Illness HPI narrative: Patient is a 68-year-old gentleman who is recovering from arthroscopy of the right shoulder. As result he has been sleeping in the chair. He has developed fullness and induration as well as discomfort in the perirectal area on the left. He feels general malaise body aches and fatigue. Pulses 105 upon arrival but he is afebrile. He has had no drainage or discharge. He has had no overt fevers chills or night sweats. He is beginning to feel unwell like he has a brewing infection. Patient is a type 2 diabetic. States his blood sugars have been reasonably stable. Related Data Home Medications ?Medication ?Instructions ?Recorded ?Confirmed loratadine 10 mg tablet 10 mg PO QDAY 11/23/21 10/02/24 diphenhydramine HCl 25 mg capsule 25 mg PO TID PRN 12/31/21 10/02/24 (Benadryl) ibuprofen 200 mg tablet 400 mg PO QID PRN 07/19/24 10/02/24 semaglutide 1 mg/dose (4 mg/3 mL) 1 mg subcut 07/19/24 10/02/24 subcutaneous pen injector (Ozempic) gabapentin 300 mg capsule 300 mg PO QPM 08/25/24 10/02/24 naproxen sodium 220 mg tablet mg HS 08/25/24 10/02/24 Previous Rx's ?Medication ?Instructions ?Recorded albuterol sulfate 90 mcg/actuation 2 inh inhalation Q4H PRN shortness 01/03/22 aerosol inhaler of breath or wheezing #6.7 grams blood sugar diagnostic (Accu-Chek ##100 01/29/22 Yuliya Plus test strips) levothyroxine 100 mcg capsule 100 mcg PO QDAY Hypothyroidism #90 02/07/22 caps metformin 500 mg tablet 500 mg PO BID Diabetes #180 tabs 02/07/22 tamsulosin 0.4 mg capsule 0.4 mg PO QDAY BPH #90 caps 02/07/22 trazodone 50 mg tablet 50 mg PO QDAY #90 tabs 02/07/22 simvastatin 20 mg tablet 20 mg PO QDAY Hyperlipidemia #90 02/14/22 tabs blood sugar diagnostic (Accu-Chek ##100 04/03/22 Yuliya Plus test strips) blood sugar diagnostic (Accu-Chek #300 ea 04/03/22 Yuliya Plus test strips) empagliflozin 10 mg tablet 10 mg PO QDAY Diabetes #90 tabs 05/10/22 (Jardiance) insulin glargine 100 unit/mL (3 33 unit (0.33 mL) subcut .HS #15 mL 05/14/22 mL) subcutaneous pen (Lantus Solostar U-100 Insulin) sildenafil 50 mg tablet (Viagra) 75 mg (1.5 x 50 mg) PO QDAY PRN 05/27/22 sexual activity #10 tabs lisinopril 20 mg tablet 20 mg PO QDAY Hypertension #90 tabs 03/04/23 Allergies Allergy/AdvReac Type Severity Reaction Status Date / Time No Known Drug Allergies Allergy Verified 10/02/24 09:34 Review of Systems Status of ROS: Reports: 10 or more systems reviewed and unremarkable except as noted in History and below [facility] Medical History Type 2 diabetes mellitus without complication, with long-term current use of insulin ?E11.9 - Type 2 diabetes mellitus without complications (ICD-10) ?Z79.4 - correction (current) use of insulin (ICD-10) Peripheral neuropathy ?G62.9 - Polyneuropathy, unspecified (ICD-10) Depression ?F32.A - Depression, unspecified (ICD-10) Erectile dysfunction ?N52.9 - Male erectile dysfunction, unspecified (ICD-10) Hyperlipidemia ?E78.5 - Hyperlipidemia, unspecified (ICD-10) BPH (benign prostatic hyperplasia) ?N40.0 - Benign prostatic hyperplasia without lower urinary tract symptoms (ICD-10) History of renal calculi ?Z87.442 - Personal history of urinary calculi (ICD-10) Diabetes ?E11.9 - Type 2 diabetes mellitus without complications (ICD-10) Surgical History History of arthroscopy of right shoulder (08/26/24) ?Z98.890 - Other specified postprocedural states (ICD-10) History of colonoscopy ?Z98.890 - Other specified postprocedural states (ICD-10) Family History Father Parkinson's disease Social History Narrative: Former smoker (11/13/08) Smoking Status: Former smoker What tobacco products do you use: cigarettes Smoking quit date/years: >15 years ago Do you use any of these nicotine containing products: None Second hand tobacco smoke exposure: No How often do you have a drink containing alcohol: monthly or less How many standard drinks containing alcohol do you have on a typical day: 1 or 2 How often do you have six or more drinks on one occasion: Never AUDIT-C Alcohol total score: 1 Non-prescribed substance use: denies use Caffeine: Yes (coffee, soda) Exam Narrative: Exam Narrative: EXAM GENERAL: Patient appears comfortable. EYES: No scleral icterus. ENT: Tympanic membranes and oropharynx normal. THYROID: no thyroid nodules or thyromegaly. LYMPH: No supraclavicular or cervical lymphadenopathy. SKIN: Area of induration and questionable fluctuance the left of the midline perirectal region. EXT: No dependent lower extremity pedal edema. HEART: Regular rate and rhythm with no murmurs, rubs, or gallops. LUNGS: Clear to auscultation bilaterally with no crackles or wheezes. ABD: Soft, non tender, non distended. PSYCH: Good eye contact, speech is not pressured. Const: Vital Signs, click to edit/add: Vital Signs - 24 hr 10/02/24 09:28 Temperature 98.0 F Pulse Rate [Left P ulse Oximeter] 105 H Respiratory Rate 18 Blood Pressure [Le ft Upper Arm] 113/75 Pulse Oximetry 94 Oxygen Delivery Me thod Room Air Course Course ED Course: Patient seen and examined. CT of the pelvis CBC blood cultures x2 CRP metabolic panel ordered. Vital Signs Vital signs: Initial Vital Signs Temperature 98.0 F 10/02/24 09:28 Temperature Source Oral 10/02/24 09:28 Pulse Rate 105 H 10/02/24 09:28 Respiratory Rate 18 10/02/24 09:28 Blood Pressure 113/75 10/02/24 09:28 Blood Pressure Mean 87 10/02/24 09:28 Blood Pressure Position Sitting 10/02/24 09:28 Pulse Oximetry 94 10/02/24 09:28 Oxygen Delivery Method Room Air 10/02/24 09:28 Vital Signs Temperature 98.0 F 10/02/24 09:28 Pulse Rate 105 H 10/02/24 09:28 Respiratory Rate 18 10/02/24 09:28 Blood Pressure 113/75 10/02/24 09:28 Pulse Oximetry 94 10/02/24 09:28 Oxygen Delivery Method Room Air 10/02/24 09:28 Temperature 98.0 F 10/02/24 09:28 Pulse Rate 105 H 10/02/24 09:28 Respiratory Rate 18 10/02/24 09:28 Blood Pressure 113/75 10/02/24 09:28 Pulse Oximetry 94 10/02/24 09:28 Oxygen Delivery Method Room Air 10/02/24 09:28 Medical Decision Making MDM Narrative Medical decision making narrative: Patient presents with a cute lump to the left of his anus. Workup been shows a elevated CRP with normal white blood cell count. He did undergo a CT scan which shows 2.8 cm perirectal abscess. Surgery was able to drain the abscess. The it is packed and he was instructed on wound care. We did place him on Augmentin for the next 7 days he will be seen back in surgery clinic in 5 days. Lab Data Labs: Lab Results 10/02/24 Range/Units 10:12 WBC 8.29 (4.50-11.00) K/uL RBC 3.40 L (4.30-5.90) m/uL Hgb 10.9 L (13.5-17.5) gm/dL Hct 32.5 L (37.0-53.0) % MCV 96 (80-100) fL MCH 32 (26-34) pg MCHC 34 (32-36) gm/dL RDW Coeff of Mari 14.0 (11.5-15.5) % Plt Count 154 (140-440) K/uL Neut % (Auto) 79.7 H (42.0-72.0) % Lymph % (Auto) 8.3 L (20-44) % [place] % (Auto) 10.5 (0.0-11.0) % Eos % (Auto) 1.1 (0.0-7.0) % Baso % (Auto) 0.2 (0.0-3.0) % Neut # (Auto) 6.60 (1.7-7.0) K/uL Lymph # (Auto) 0.70 L (0.90-2.90) K/uL [place] # (Auto) 0.90 (0.00-0.90) K/UL Eos # (Auto) 0.09 (0.00-0.50) K/uL Baso # (Auto) 0.02 (0.00-0.30) K/uL Abs Immat Gran (auto) 0.02 (0.00-0.30) K/uL Imm/Tot Granulo (auto) 0.2 % Sodium 131 L (135-149) mmol/L Potassium 4.6 (3.6-5.1) mmol/L Chloride 100 (96-114) mmol/L Carbon Dioxide 22 (20-32) mmol/L Anion Gap 9 (7-15) mEq/L BUN 29 (7-30) mg/dL Creatinine 1.0 (0.5-1.5) mg/dL Estimated Creat Clear 62.03 Estimated GFR 81 ml/min Glucose 268 H (60-115) mg/dL Calcium 8.3 L (8.4-10.6) mg/dL C-Reactive Protein 3.4 H (0.5-1.0) mg/dL Discharge Plan Discharge Clinical Impression: Naomi-rectal abscess Patient Disposition: Home, Self-Care Condition: Stable Instructions: Abscess (ED) Additional Instructions: Augmentin as directed Pain control as previous Follow-up with General surgery . Activity Level: No Restrictions Discharge Diet: Regular Prescriptions: No Action diphenhydramine HCl [Benadryl] 25 mg capsule 25 mg PO TID PRN levothyroxine 100 mcg capsule 100 mcg PO QDAY Qty: 90 3RF metformin 500 mg tablet 500 mg PO BID Qty: 180 3RF tamsulosin 0.4 mg capsule 0.4 mg PO QDAY Qty: 90 3RF trazodone 50 mg tablet 50 mg PO QDAY Qty: 90 3RF simvastatin 20 mg tablet 20 mg PO QDAY Qty: 90 3RF insulin glargine [Lantus Solostar U-100 Insulin] 100 unit/mL (3 mL) insulin pen 33 unit subcut .HS Qty: 15 7RF Ozempic 1 mg/dose (4 mg/3 mL) pen injector 1 mg subcut naproxen sodium 220 mg tablet HS gabapentin 300 mg capsule 300 mg PO QPM loratadine 10 mg tablet 10 mg PO QDAY albuterol sulfate 90 mcg/actuation HFA aerosol inhaler 2 inh inhalation Q4H PRN (Reason: shortness of breath or wheezing) Qty: 6.7 1RF (DME) Accu-Chek Yuliya Plus test strp Strip See Rx Instructions .ROUTE .COMPLEX Qty: 100 0RF Dose Instruction: use to test blood glucose levels 3 times daily. Rx Instructions: use to test blood glucose levels 3 times daily. (DME) Accu-Chek Yuliya Plus test strp Strip See Rx Instructions .ROUTE .COMPLEX Qty: 100 5RF Dose Instruction: use to test blood sugar three times daily Rx Instructions: use to test blood sugar three times daily (DME) Accu-Chek Yuliya Plus test strp Strip See Rx Instructions .Route Qty: 300 0RF Rx Instructions: use to test blood sugar TID Jardiance 10 mg tablet 10 mg PO QDAY Qty: 90 3RF sildenafil [Viagra] 50 mg tablet 75 mg PO QDAY PRN (Reason: sexual activity) Qty: 10 5RF Rx Instructions: administer 30 minutes to 4 hours before activity lisinopril 20 mg tablet 20 mg PO QDAY Qty: 90 0RF ibuprofen 200 mg tablet 400 mg PO QID PRN Follow Up/Referrals: Vonda Cardenas MD [Primary Care Provider, Obstetrics] Stand Alone Forms: [employer] Info Instructions
--- OUTSIDE RECORDS SUMMARY | 2024-10-02 10:04 | XMS_ITS | Clinical Summary ---
Author Organization [email or web address] [facility] Address [address] [place] [id number] Care Team Providers Care Brick Pitcher Name Role Phone Vonda Cardenas MD Primary Care Provider Allergies Active Allergy Reactions Criticality Noted Date Comments Pollen Extracts Cough 10/05/2019 Medications ibuprofen (ADVIL; MOTRIN) 200 mg tablet Take 600 mg by mouth every 6 hours if needed. 600-1200 mg Active diphenhydrAMINE (BENADRYL) 12.5 mg chewable tablet Chew 25 mg by mouth 4 times daily if needed. Active loratadine (CLARITIN) 10 mg chewable tablet Chew by mouth once daily. Active blood sugar diagnostic (Accu-Chek Yuliya Plus test strp) stripIndications :Type 2 diabetes mellitus without complication, unspecified whether nursing home insulin use (HC) Dispense item covered by pt ins. E11.9 IDDM type II - Test 2 times/day. 300 Each 04/23/19 24 Active pen needle, diabetic (UltiCare Pen Needle) 31 gauge x 5/16Indications :Type 2 diabetes mellitus without complication, unspecified whether nursing home insulin use (HC) For administering insulin at home. 100 Each 04/23/19 24 Active albuterol HFA (PRO-AIR; VENTOLIN; PROVENTIL) 90 mcg/actuation inhalerIndicatio ns:Bronchospasm Inhale 1-2 Puffs by mouth every 4 hours while awake. 1 Each 2 04/23/19 24 Active triamcinolone (ARISTOCORT; KENALOG) 0.1 % creamIndications :Pruritic rash Apply topically to affected area(s) three times daily. 80 g 04/23/19 24 Active metFORMIN (GLUCOPHAGE) 500 mg tabletIndication s:Type 2 diabetes mellitus without complication, unspecified whether joint terminal attack controller insulin use (HC) Take 2 Tablets (1,000 mg) by mouth two times daily with meals. 400 Tablet 3 12/04/19 24 Active Lantus Solostar U-100 Insulin 100 unit/mL (3 mL) penIndications:T ype 2 diabetes mellitus without complication, unspecified whether joint terminal attack controller insulin use (HC) Inject 50 units subcutaneous before bedtime. 45 mL 3 12/04/19 24 Active gabapentin (NEURONTIN) 300 mg capsuleIndicatio ns:Right shoulder tendonitis Take 1 Capsule (300 mg) by mouth at bedtime. 30 Capsule 2 04/16/19 25 Active simvastatin (ZOCOR) 20 mg tabletIndication s:Type 2 diabetes mellitus without complication, unspecified whether joint terminal attack controller insulin use (HC) TAKE ONE TABLET BY MOUTH ONE TIME DAILY WITH EVENING MEAL 100 Tablet 1 05/04/19 25 Active levothyroxine (SYNTHROID) 100 mcg tabletIndication s:Hypothyroidism (acquired) Take 1 Tablet (100 mcg) by mouth once daily. 100 Tablet 1 05/04/19 25 Active traZODone (DESYREL) 50 mg tabletIndication s:Insomnia, unspecified type TAKE ONE TABLET BY MOUTH ONE TIME DAILY AT BEDTIME 100 Tablet 1 05/04/19 25 Active naproxen sodium 220 mg cap 05/16/19 25 Active lidocaine 4 % cream Apply topically to affected area(s) one time. 05/27/19 25 Active empagliflozin (Jardiance) 10 mg tabletIndication s:Type 2 diabetes mellitus without complication, unspecified whether nursing home insulin use (HC) Take 1 Tablet (10 mg) by mouth once daily. 100 Tablet 3 05/27/19 25 Active semaglutide (Ozempic) 1 mg/dose (4 mg/3 mL) subcutaneous penIndications:T ype 2 diabetes mellitus without complication, unspecified whether nursing home insulin use (HC) Inject 1 mg subcutaneous once weekly. 9 mL 3 05/27/19 25 Active lisinopriL (PRINIVIL; ZESTRIL) 20 mg tabletIndication s:HTN (hypertension) TAKE ONE TABLET BY MOUTH ONE TIME DAILY 100 Tablet 1 06/01/19 Active tamsulosin 0.4 mg capsuleIndicatio ns:BPH without urinary obstruction TAKE ONE CAPSULE BY MOUTH ONE TIME DAILY AFTER A MEAL 100 Capsule 3 06/01/19 Active oxyCODONE 5 mg immediate release tabletIndication s:Tear of right rotator cuff, unspecified tear extent, unspecified whether traumatic Take 1 Tablet (5 mg) by mouth every 4 hours if needed for Pain. 24 Tablet 08/11/19 Active Active Problems Problem Noted Date Diagnosed Date Type 2 diabetes mellitus wit h diabetic microalbuminuria, with long-term current use of insulin 05/27/2024 Insomnia 02/06/2023 BPH without urinary obstruction 02/06/2023 Neuropathy, peripheral 10/05/2019 Type 2 diabetes mellitus wit hout complication, with long-term current use of insulin 06/15/2019 Dyslipidemia 06/15/2019 Essential hypertension 06/15/2019 Class 2 severe obesity with serious comorbidity and body mass index (BMI) of 35.0 to 35.9 in adult 06/15/2019 Overview (08/05/2024): BMI: 35.03 (05/27/24) Comorbid conditions: HTN, dyslipidemia, type 2 diabetes Encounters Date Type Department Care Team Description 08/10/2024 8:20 AM CDT Office Visit [facility] [address] [place] [address] Votel, Lewis Roht MD Preoperative Exam (Rt shoulder, [place], Dr. Laguna, 08/26/24) 08/10/2024 Travel 08/04/2024 Travel 07/12/2024 Orders Only [facility] Scanner 1 scan: (1-Ord) [facility], RIGHT SHOULDER, WITHOUT CONTRAST, 07/12/2024 from Last 3 Months Immunizations Immunization Administration Dates Next Due Influenza, High-dose Quadrivalent Inactivated ,01/29/2020 Influenza, IIV4 01/03/2022 Influenza, IIV4 (=>6mos) MDV 12/30/2018,02/16/20 18 Pneumococcal conj 13-Valent (Prevnar 13) 020 Social History Tobacco Use Types Packs/Day Years Used Date Smoking Tobacco: Former Cigarettes Smokeless Tobacco: Former Tobacco Cessation:Counseling Given: Yes Comments:quit 14 years ago Alcohol Use Standard Drinks/Week Comments Yes 0 (1 standard drink = 0.6 oz pur e alcohol) rare PHQ-2 Answer Date Recorded PHQ-2 TOTAL SCORE 1 12/04/2023 Social Connections Answer Date Recorded Do you often feel lonely or isolated from those around you? 0 12/04/2023 Financial Resource Strain Answer Date R ecorded Difficulty of Paying Living Expenses 3 12/04/2023 Difficulty of Paying Living Expenses Not on file 12/04/2023 Food Insecurity Answer Date Recorded Do you worry your food will run out before you are able to buy more? 1 12/04/2023 Transportation Needs Answer Date Record ed Does lack of transportation keep you from medica l appointments? 1 12/04/2023 Does lack of transportation keep you from work, meetings or getting things that you need? 1 12/04/2023 Housing Stability Answer Date Recorded What is your housing situation today? 1 12/04/2023 Utilities Answer Date Recorded Do you have trouble paying f or utilities (for example, heat, electricity, water, phone)? 1 12/04/2023 Sex and Gender Information Value Date Recorded Sex Assigned at Not on file Legal Sex Male 5:05 PM CDT Gender Identity Not on file Sexual Orientation Not on file Obstetrics History Last Filed Vital Signs Vital Sign Reading Time Taken Comments Blood Pressure 127/75 08/10/2024 8:19 AM CDT Pulse 67 08/10/2024 8:19 AM CDT Temperature 36.6 C (97.9 F) 08/10/2024 8:19 AM CDT Respiratory Rate - - Oxygen Saturation 96% 08/10/2024 8:19 AM CDT Inhaled Oxygen Concentration - - Weight 106.5 kg (234 lb 12.8 oz) 08/10/2024 8:19 AM CDT Height 168.4 cm (5' 6.3) 08/10/2024 8:19 AM CDT Body Mass Index 37.56 08/10/2024 8:19 AM CDT Plan of Treatment Health Maintenance Due Date Last Done Comments Tdap 1964 Hepatitis C screening for age 18-79 01/01/1972 Tetanus booster 1973 Zoster (shingles) series for age 50+ (1 of 2) 01/01/2004 RSV vaccine for adults or (1 - Risk 60-74 years 1-dose series) 2013 Pneumococcal series for age 50+ (2 of 2 - PPSV23) 02/17/2020 12/23/2019 COVID-19 vaccine series ( - 2023- season) 2023 01/03/2022, 02/08/2021, 06/30/2020, Additional history exists Depression screening for age 12+ 12/04/2024 12/05/2023, 12/04/2023, 04/23/2023, Additional history exists Medicare Wellness for age 65+ 12/04/2024 12/04/2023 Influenza Vaccine (Season Ended) 2024 01/03/2022, 12/30/2018, 02/15/2018 BMI (ht and wt on same day) for age 18+ 08/10/2025 08/10/2024, 12/04/2023, 11/21/2022 Colonoscopy through age 75 10/01/202510/01 (Completed outside of [facility]) Lipids for age 45-75 12/03/2028 12/04/2023, 11/22/19 23 AAA screening age 65-74 Completed 12/15/2023 Hepatitis B series for 19+ Aged Out N o longer eligible based on patient's age to complete this topic Procedures Procedure Name Priority Date/Time Associated Diagnosis Comments EKG 12 LEAD Routine 08/11/2024 8:21 AM CDT Pre-op exam NC READING EKG - NO CHARGE, COMP ONLY Routine 08/11/2024 8:19 AM CDT Pre-op exam CBC WITH AUTO DIFFERENTIAL Routine 08/10/2024 9:21 AM CDT Pre-op exam BASIC METABOLIC PANEL Routine 08/10/2024 9:21 AM CDT HTN (hypertension) SCAN-MRI INTERPRETATION 07/13/19 12:00 AM CDT US ABD AORTA SCREENING Routine 9:06 AM CDT Personal history of tobacco use, presenting hazards to health LIPID PANEL W REFLEX MEASURED LDL Routine 12/04/2023 1:14 PM CDT Type 2 diabetes mellitus with diabetic microalbuminuria, with long-term current use of insulin (HC) from Last 3 Months or Most Recently Relevant to Health Maintenance Results * EKG 12 LEAD (08/11/2024 8:21 AM CDT) Lewis Madsen MD EKG ORD Final Re sult * NC READING EKG - NO CHARGE, COMP ONLY (08/11/2024 8:19 AM CDT) Lewis Madsen MD PB - PROVIDER READINGS F inal Result * (ABNORMAL) CBC AND DIFFERENTIAL (08/10/2024 9:21 AM CDT) WHITE BLOOD CELL COUNT 6.3 3.8 - 10.8 Thousand/u L [facility] RED BLOOD CELL COUNT 4.05(L) 4.20 - 5.80 Million/uL [facility] HEMOGLOBIN 13.1(L) 13.2 - 17.1 g/dL [facility] HEMATOCRIT 39.2 38.5 - 50.0 % [facility] MCV 96.8 80.0 - 100.0 fL [facility] MCH 32.3 27.0 - 33.0 pg [facility] MCHC 33.4 32.0 - 36.0 g/dL [facility] Comment: For adults, a slight decrease in the calculated MCHC value (in the range of 30 to 32 g/dL) is most likely not clinically significant; however, it should be interpreted with caution in correlation with other red cell parameters and the patient's clinical condition. RDW 13.7 11.0 - 15.0 % [facility] PLATELET COUNT 152 140 - 400 Thousand/u L [facility] MPV 9.7 7.5 - 12.5 fL [facility] ABSOLUTE NEUTROPHILS 4,196 1,500 - 7,800 cells/uL [facility] ABSOLUTE LYMPHOCYTES 1,229 850 - 3,900 cells/uL [facility] ABSOLUTE MONOCYTES 517 200 - 950 cells/uL [facility] ABSOLUTE EOSINOPHILS 309 15 - 500 cells/uL [facility] ABSOLUTE BASOPHILS 50 0 - 200 cells/uL [facility] NEUTROPHILS 66.6 % [facility] LYMPHOCYTES 19.5 % [facility] MONOCYTES 8.2 % [facility] EOSINOPHILS 4.9 % [facility] BASOPHILS 0.8 % [facility] Blood BLOOD SPECIMEN / Unknown 08/10/2024 9:21 AM CDT 08/10/2024 9:21 AM CDT us Lewis Madsen MD HEMATOLOGY Final Re sult [employer] [facility] [address] [place] [address], [facility] [address] [place] [address] * (ABNORMAL) BASIC METABOLIC PANEL (08/10/2024 9:21 AM CDT) GLUCOSE 151(H) 65 - 99 mg/dL [facility] Comment: Fasting reference interval For someone without known diabetes, a glucose value >125 mg/dL indicates that they may have diabetes and this should be confirmed with a follow-up test. UREA NITROGEN (BUN) 29(H) 7 - 25 mg/dL [facility] CREATININE 1.10 0.70 - 1.28 mg/dL [facility] EGFR 72 > OR = 60 mL/min/1.7 3m2 [facility] BUN/CREATININE RATIO 26(H) 6 - 22 (calc) [facility] SODIUM 136 135 - 146 mmol/L [facility] POTASSIUM 5.0 3.5 - 5.3 mmol/L [facility] CHLORIDE 106 98 - 110 mmol/L [facility] CARBON DIOXIDE 21 20 - 32 mmol/L [facility] ELECTROLYTE BALANCE 9 7 - 17 mmol/L (calc) [facility] CALCIUM 8.7 8.6 - 10.3 mg/dL [facility] Blood BLOOD SPECIMEN / Unknown 08/10/2024 9:21 AM CDT 08/10/2024 9:21 AM CDT Lewis Madsen MD CHEMISTRY Final Re sult [facility] [address] [place] [address], [facility] [address] [place] [address] * SCAN-MRI INTERPRETATION (07/12/2024 12:00 AM CDT) Anatomical Region Laterality Modality Other us Scanner OTHER Final Result * US ABD AORTA SCREENING [[id number]] (12/15/2023 9:06 AM CDT) Anatomical Region Laterality Modality Abdomen, AORTA Ultrasound 12/15/2023 12:5 2 PM CDT Impressions 12/15/2023 12:52 PM CDT No evidence for abdominal aortic aneurysm. Dictated by Heber Gay MD @ 12/15/2023 12:52:58 PM (Electronically Signed) Narrative 12/15/2023 12:52 PM CDT For Patients: As a result of the Cures Act, medical imaging exams and procedure reports are released immediately into your electronic medical record. You may view this report before your referring provider. If you have questions, please contact your health care provider. TECHNIQUE: Ultrasound of the abdominal aorta. INDICATION: Screening for AAA. History of tobacco use FINDINGS: Proximal abdominal aorta: 2.4 cm. Middle aorta: 2.2 cm. Distal aorta: 2.0 cm. Right iliac artery: 1.1 cm. Left iliac artery: 0.9 cm. Procedure Note Heber Gay MD - 12/15/2023 For Patients: As a result of the 21st Century Cures Act, medical imagingexams and procedure reports are released immediately into your electronicmedical record. You may view this report before your referring provider.If you have questions, please contact your health care provider. TECHNIQUE: Ultrasound of the abdominal aorta. INDICATION: Screening for AAA. History of tobacco use FINDINGS: Proximal abdominal aorta: 2.4 cm. Middle aorta: 2.2 cm. Distal aorta: 2.0 cm. Right iliac artery: 1.1 cm. Left iliac artery: 0.9 cm. IMPRESSION: No evidence for abdominal aortic aneurysm. Dictated by Heber Gay MD @ 12/15/2023 12:52:58 PM (Electronically Signed) us Vonda Cardenas MD Final Resul t * (ABNORMAL) LIPID PANEL W REFLEX MEASURED LDL (12/04/2023 1:14 PM CDT) CHOLESTEROL,TOTAL 107 100 - 199 mg/dL 12/04/2023 11:07 PM CDT [facility] Comment: Cholesterol, Total Reference Ranges Desirable <200 mg/dL Borderline 200-239 mg/dL High >=240 mg/dL TRIGLYCERIDES 243(H) <150 mg/dL 12/04/2023 11:07 PM CDT [facility] HDL CHOLESTEROL 34(L) >40 mg/dL 11:07 PM CDT [facility] NON-HDL CHOLESTEROL 73 <145 mg/dl 12/04/2023 11:07 PM CDT [facility] CHOL/HDL RATIO 3.15 <4.50 12/04/2023 11:07 PM CDT [facility] LDL CHOLESTEROL 24 <=130 mg/dL 12/04/2023 11:07 PM CDT [facility] VLDL CHOLESTEROL 49(H) <=30 mg/dL 12/04/2023 11:07 PM CDT [facility] PROVIDER ORDERED STATUS RANDOM 12/04/2023 11:07 PM CDT [facility] Blood BLOOD SPECIMEN / Unknown Venipuncture / Unknown 12/04/2023 1:14 PM CDT 12/04/2023 1:40 PM CDT us Vonda Cardenas MD CHEMISTRY Final Resul t [facility] [address] [address], [place] from Last 3 Months or Most Recently Relevant to Health Maintenance Insurance MEDICARE ADVANTAGE MR Advance Directives Documents on File Type Date Recorded Patient Drawer In Hand Expl anation Healthcare Directive 05/28/2024 025 Care Teams Brick Pitcher Relationship Specialty Start Date End Date Vonda Cardenas MD [address] [place] [address] PCP - General Family Practice 11/21/22
[2024-10-02 10:22] LABS: Basophils Absolute Auto 0.02 K/uL (0.00-0.30); Basophils Percent Auto 0.2 % (0.0-3.0); Eosinophils Absolute Auto 0.09 K/uL (0.00-0.50); Eosinophils Percent Auto 1.1 % (0.0-7.0); Hematocrit 32.5 % (37.0-53.0); Hemoglobin* 10.9 gm/dL (13.5-17.5); Immature Granulocytes Abs Auto 0.02 K/uL (0.00-0.30); Immature Granulocytes Pct Auto 0.2 %; Lymphocytes Percent Auto 8.3 % (20-44); Mean Corpuscular HGB Conc 34 gm/dL (32-36); Mean Corpuscular Hemoglobin 32 pg (26-34); Mean Corpuscular Volume 96 fL (80-100); Monocytes Percent Auto 10.5 % (0.0-11.0); Neutrophils Percent Auto 79.7 % (42.0-72.0); Platelet Count* 154 K/uL (140-440); White Blood Count* 8.29 K/uL (4.50-11.00)
[2024-10-02 10:29] LABS: Slide Review Reflex No
[2024-10-02 10:34] LABS: Chloride* 100 mmol/L (96-114)
[2024-10-02 10:35] LABS: Potassium* 4.6 mmol/L (3.6-5.1); Sodium* 131 mmol/L (135-149)
[2024-10-02 10:37] LABS: Blood Urea Nitrogen* 29 mg/dL (7-30); Est. Creatinine Clearance* 62.03; Estimated Glomerular Filt Rate 81 ml/min
[2024-10-02 10:38] LABS: Anion Gap 9 mEq/L (7-15); Calcium* 8.3 mg/dL (8.4-10.6); Carbon Dioxide* 22 mmol/L (20-32); Glucose* 268 mg/dL (60-115)
[2024-10-02 10:41] LABS: C Reactive Protein* 3.4 mg/dL (0.5-1.0)
[2024-10-02 13:10] VITALS: BP 117/69; PULSE 97; RESP 16; O2SAT 95
[2024-10-02] MEDS: lidocaine HCL 2 % MULTIDOSE 20 ML VIAL INJECTION (14:47)
--- NOTE | 2024-10-02 15:09 | PM.GSCN ---
History of Present Illness Consult details Date Seen: 10/02/24 Consult date: 10/02/24 Narrative: Patient presented to the emergency department with evidence of a perianal abscess. He had an arthroscopy performed on the right shoulder 2 weeks ago. As a result he has been sleeping in a chair. Over the last week he has developed fullness and pain just outside of his rectum. He has never had anything like this before. He denies any current drainage. He is having some pain with bowel movements. No overt fevers. Patient is a type 2 diabetic. Review of Systems Status of ROS: Reports: 10 or more systems reviewed and unremarkable except as noted in History and below [facility] Medical History Type 2 diabetes mellitus without complication, with long-term current use of insulin ?E11.9 - Type 2 diabetes mellitus without complications (ICD-10) ?Z79.4 - terminal operator (current) use of insulin (ICD-10) Peripheral neuropathy ?G62.9 - Polyneuropathy, unspecified (ICD-10) Depression ?F32.A - Depression, unspecified (ICD-10) Erectile dysfunction ?N52.9 - Male erectile dysfunction, unspecified (ICD-10) Hyperlipidemia ?E78.5 - Hyperlipidemia, unspecified (ICD-10) BPH (benign prostatic hyperplasia) ?N40.0 - Benign prostatic hyperplasia without lower urinary tract symptoms (ICD-10) History of renal calculi ?Z87.442 - Personal history of urinary calculi (ICD-10) Diabetes ?E11.9 - Type 2 diabetes mellitus without complications (ICD-10) Surgical History History of arthroscopy of right shoulder (08/26/24) ?Z98.890 - Other specified postprocedural states (ICD-10) History of colonoscopy ?Z98.890 - Other specified postprocedural states (ICD-10) Family History Father Parkinson's disease Social History Narrative: Former smoker (11/13/08) Smoking Status: Former smoker What tobacco products do you use: cigarettes Smoking quit date/years: >15 years ago Do you use any of these nicotine containing products: None Second hand tobacco smoke exposure: No How often do you have a drink containing alcohol: monthly or less How many standard drinks containing alcohol do you have on a typical day: 1 or 2 How often do you have six or more drinks on one occasion: Never AUDIT-C Alcohol total score: 1 Non-prescribed substance use: denies use Caffeine: Yes (coffee, soda) Meds Home Medications and Allergies Home Medications ?Medication ?Instructions ?Recorded ?Confirmed ?Type loratadine 10 mg tablet 10 mg PO QDAY 11/23/21 10/02/24 History diphenhydramine HCl 25 mg capsule 25 mg PO TID PRN 12/31/21 10/02/24 History (Benadryl) albuterol sulfate 90 mcg/actuation 2 inh inhalation Q4H PRN shortness 01/03/22 10/02/24 Rx aerosol inhaler of breath or wheezing #6.7 grams blood sugar diagnostic (Accu-Chek ##100 01/29/22 10/02/24 Rx Yuliya Plus test strips) levothyroxine 100 mcg capsule 100 mcg PO QDAY Hypothyroidism #90 02/07/22 10/02/24 Rx caps metformin 500 mg tablet 500 mg PO BID Diabetes #180 tabs 02/07/22 10/02/24 Rx tamsulosin 0.4 mg capsule 0.4 mg PO QDAY BPH #90 caps 02/07/22 10/02/24 Rx trazodone 50 mg tablet 50 mg PO QDAY #90 tabs 02/07/22 10/02/24 Rx simvastatin 20 mg tablet 20 mg PO QDAY Hyperlipidemia #90 02/14/22 10/02/24 Rx tabs blood sugar diagnostic (Accu-Chek ##100 04/03/22 10/02/24 Rx Yuliya Plus test strips) blood sugar diagnostic (Accu-Chek #300 ea 04/03/22 10/02/24 Rx Yuliya Plus test strips) empagliflozin 10 mg tablet 10 mg PO QDAY Diabetes #90 tabs 05/10/22 10/02/24 Rx (Jardiance) insulin glargine 100 unit/mL (3 33 unit (0.33 mL) subcut .HS #15 mL 05/14/22 10/02/24 Rx mL) subcutaneous pen (Lantus Solostar U-100 Insulin) sildenafil 50 mg tablet (Viagra) 75 mg (1.5 x 50 mg) PO QDAY PRN 05/27/22 10/02/24 Rx sexual activity #10 tabs lisinopril 20 mg tablet 20 mg PO QDAY Hypertension #90 tabs 03/04/23 10/02/24 Rx ibuprofen 200 mg tablet 400 mg PO QID PRN 07/19/24 10/02/24 History semaglutide 1 mg/dose (4 mg/3 mL) 1 mg subcut 07/19/24 10/02/24 History subcutaneous pen injector (Ozempic) gabapentin 300 mg capsule 300 mg PO QPM 08/25/24 10/02/24 History naproxen sodium 220 mg tablet mg HS 08/25/24 10/02/24 History Allergies Allergy/AdvReac Type Severity Reaction Status Date / Time No Known Drug Allergies Allergy Verified 10/02/24 09:34 Exam Narrative: Exam Narrative: General: Alert and oriented, no acute distress. Nontoxic. Standing in the room. Respiratory: Equal breath rise bilaterally, maintained on room air CV: Well perfused : Normal external male genitalia. Perianal exam with erythema and induration left lateral. Tenderness to palpation and underlying fluctuance appreciated. No active drainage. Around the anal area on the left side are some inflamed skin tags, no external hemorrhoids or anal fissure. Digital rectal exam deferred. Const: Vital Signs, click to edit/add: Vital Signs - 24 hr 10/02/24 09:28 10/02/24 13:10 Temperature 98.0 F Pulse Rate [Left P ulse Oximeter] 105 H 97 Respiratory Rate 18 16 Blood Pressure [Le ft Upper Arm] 113/75 117/69 Pulse Oximetry 94 95 Oxygen Delivery Me thod Room Air Room Air Results Labs Labs: Abnormal lab results 10/02/24 Range/Units 10:12 RBC 3.40 L (4.30-5.90) m/uL Hgb 10.9 L (13.5-17.5) gm/dL Hct 32.5 L (37.0-53.0) % Neut % (Auto) 79.7 H (42.0-72.0) % Lymph % (Auto) 8.3 L (20-44) % Lymph # (Auto) 0.70 L (0.90-2.90) K/uL Sodium 131 L (135-149) mmol/L Glucose 268 H (60-115) mg/dL Calcium 8.3 L (8.4-10.6) mg/dL C-Reactive Protein 3.4 H (0.5-1.0) mg/dL Diabetes panel 10/02/24 Range/Units 10:12 Sodium 131 L (135-149) mmol/L Potassium 4.6 (3.6-5.1) mmol/L Chloride 100 (96-114) mmol/L Carbon Dioxide 22 (20-32) mmol/L BUN 29 (7-30) mg/dL Creatinine 1.0 (0.5-1.5) mg/dL Glucose 268 H (60-115) mg/dL Calcium 8.3 L (8.4-10.6) mg/dL Calcium panel 10/02/24 Range/Units 10:12 Calcium 8.3 L (8.4-10.6) mg/dL Pituitary panel 10/02/24 Range/Units 10:12 Sodium 131 L (135-149) mmol/L Potassium 4.6 (3.6-5.1) mmol/L Chloride 100 (96-114) mmol/L Carbon Dioxide 22 (20-32) mmol/L BUN 29 (7-30) mg/dL Creatinine 1.0 (0.5-1.5) mg/dL Glucose 268 H (60-115) mg/dL Calcium 8.3 L (8.4-10.6) mg/dL Adrenal panel 10/02/24 Range/Units 10:12 Sodium 131 L (135-149) mmol/L Potassium 4.6 (3.6-5.1) mmol/L Chloride 100 (96-114) mmol/L Carbon Dioxide 22 (20-32) mmol/L BUN 29 (7-30) mg/dL Creatinine 1.0 (0.5-1.5) mg/dL Glucose 268 H (60-115) mg/dL Calcium 8.3 L (8.4-10.6) mg/dL All other labs normal. Imaging CT scan - pelvis: report reviewed and image reviewed General Surgery Procedures I/D Type: abscess Site: nnamdi-rectal (Perianal) Side (if applicable): left Sedation/analgesia: none Anesthetic used: lidocaine 1% Technique: incised with #11 blade Amount of fluid (mL): 15 Irrigation: No Packing used?: plain Progress Note:A&P Assessment and plan (1) Perianal abscess: Status: Acute Plan Patient presents with evidence of a perianal abscess left lateral on examination. While in the emergency department he had a CT scan as part of his workup which demonstrated an abscess 1.9 x 2.8 cm. Risks and benefits of incision and drainage in the emergency department were discussed at length the patient. All questions and concerns were addressed with patient agreeing to proceed. A large amount of purulence was expelled during the procedure. Quarter-inch packing tape was placed into the abscess cavity to facilitate further drainage. Patient was instructed to soak in a bath tub or shower tomorrow and remove the packing. Recommend he soak the area 2-3 times a day. Would expect continued drainage over the next several days. Agree with a 7 day course of antibiotics, Augmentin. Will follow up with the patient in my surgery Clinic next for a wound check.
== END 2024-10-02 14:32 | disposition home or self-care (01) ==
PROVIDERS: Emergency Provider Internal Medicine; PCP Family Medicine
DX: K61.1 Rectal abscess (principal)
CPT/HCPCS: 36415; 72193; 80048; 85025; 86140; 87040; 99283; Q9967

== ENCOUNTER 2024-11-23 13:00 | Outpatient (RCR) | payer OTHER, SELFPAY ==
--- NOTE | 2024-09-03 17:26 | PT.OPEX ---
PT [place] Outpatient Eval PT [facility] Outpatient Eval Start: 09/03/24 17:07 Freq: Status: Active Protocol: Document 09/03/24 17:08 LAURA (Rec: 09/03/24 17:21 LAURA [id number]) E-signed By Corinne Silva DPT Physical Therapy Outpatient Evaluation Insurance Information Recert Due Date 12/02/24 Insurance Name [email or web address],Medicare B Medical Diagnosis s/p R shoulder scope, SAD, DCE mini open RCR, LGHD biceps tenodesis 08/26/24 Treating Diagnosis s/p R shoulder scope, SAD, DCE mini open RCR, LGHD biceps tenodesis 08/26/24 with R shoulder pain, impaired R shoulder ROM, impaired R shoulder mobility/strength, impaired functional use of R shoulder/UE, currently restricted in R UE sling. Subjective Subjective Patient reports injury to his R shoulder when he slipped on the ice and fell back in April. States he had some PT for his shoulder prior to surgery but with limited improvement had RCR on 08/26. He has been wearing R UE sling since surgery. Takes the sling off some at home at rest to stretch R elbow into ext and for R elbow ROM. He is doing R hand, wrist, elbow ROM in his HEP. He is taking oxy, tylenol, advil regularly . Icing regularly. Pain has been tolerable. Pain range 1-6/10. He is sleeping in a recliner chair, up 2 -3x during the night. He had follow up with [facility] earlier this week. Patient plays several different musical instruments, goal is to return to playing. Also reports working at the [employer] one day a week but has been off work since his surgery. Date of Last 09/02/24 Physician Visit Date of Surgery (If 08/26/24 applicable) Precautions Treatment DM, HTN, depression, OA, cancer Precautions/ Contraindications Assessment Assessment/ Patient is a 68 year old male s/p R shoulder scope, SAD Impression , DCE mini open RCR, LGHD biceps tenodesis 08/26/24 with R shoulder pain, impaired R shoulder ROM, impaired R shoulder mobility/strength, impaired functional use of R shoulder/UE, currently restricted in R UE sling. Pain range 1-6/10. Patient is using pain meds, tylenol , advil regularly. Icing regularly. Patient has been wearing R UE sling since his surgery. He is doing hand , wrist, elbow ROM and elbow ext stretching in his HEP. Instructed in codmans this session - added to HEP. R shoulder PROM: flex 130 degrees, scap 105 degrees, IR 55 degrees, ER 15 degrees. Strength testing deferred at this time. Patient to continue with use of sling. Reviewed current restrictions/precautions after RCR surgery. Patient expressed understanding. Patient would benefit from skilled PT for pain/sx management, improved R shoulder ROM, improved R shoulder mobility/ strength, return to functional use of R shoulder/UE, and establishment of HEP. Plan of Care Rehabilitation Good Potential Physical Therapy 1. Decrease R shoulder pain to less than/equal to 3/10 Goals with daily activities and with the progression of PT activities over the next 6-8 weeks. 2. Improve R shoulder PROM over the next 6-8 weeks to prepare for return to functional use of R shoulder/UE. 3. Improve R shoulder AROM over the next 8-10 weeks for return to functional use of R shoulder/UE with daily activities. 4. Improve R shoulder/UE strength over the next 10-12 weeks for return to full functional use of R shoulder/UE with daily activities. 5. Patient will be I with HEP within 12 weeks for progression toward above goals, ongoing self management of pain/sx, ongoing self improvements in ROM/strength/function, and for return to full functional use of R shoulder/UE with daily activities. Coordination/ Referral Source Communication With Treatment Plan/ Manual Therapy,Therapeutic Exercises Direct Interventions Frequency/Duration 2x/week Patient Will Be Completion of LTG(s),Skills Plateau,Independent w/HEP, Discharged From Independently Progressing Therapy Evaluation Billing Untimed Code 24 Treatment Minutes Complexity Moderate Certification Information Initial 09/03/24 Certification Date Ending Certification 12/02/24 Date Provider Signature Yes Required Provider Signature POC & Medical Necessity Shows Agreement With Physician NPI Number Write NPI# Here Physician Comment/ : Change Physician Signature Please Sign/Date Here & Date Requested
== END 2025-03-23 23:59 | disposition home or self-care (01) ==
PROVIDERS: PCP Family Medicine; Visit Provider Orthopaedic Surgery
DX: Z48.89 Encounter for other specified surgical aftercare (principal); Z51.89 Encounter for other specified aftercare
CPT/HCPCS: 97110; 97162